=== PATIENT | female | born 1985 | race Caucasian/White ===

== ENCOUNTER 2016-11-18 10:50 | Outpatient (CLI) | payer OTHER ==
--- NOTE | 2016-11-18 12:10 | DIAGNOSTIC IMAGING REPORT ---
PROCEDURE: US OB 1ST TRIMESTER W/TRANSVAG INDICATION: NO HEART TONES TECHNIQUE: Hernandes scale, color, and spectral Doppler transabdominal and endovaginal sonographic images of the first trimester gravid uterus were obtained. COMPARISON: None. FINDINGS: TRANSABDOMINAL SCANS: The gravid uterus is anteverted in position and contains a fundal gestational sac with a minimal decidual response. No significant perigestational hemorrhage. The cervix is closed. parts are identified. No detectable blood flow within the fetus. TRANSVAGINAL SCANS: The cervix is closed. A pole is present with an average crown-rump length of 20.3 mm which corresponds to a 1-bgwi-2-day gestation, 3 weeks behind the expected gestational age of 11 weeks 4 days. There is no detectable blood flow or dopplerable heartbeat within the fetus despite observation for number of minutes. Left ovary was identified. No corpus luteum. Right ovary was not identified. No free pelvic fluid. IMPRESSION: 1. Intrauterine demise at 8 weeks 4 days. 2. Closed cervix and no significant perigestational hemorrhage. 3. Discussed with Dr. Valdez.
--- NOTE | 2016-11-18 12:10 | DIAGNOSTIC IMAGING REPORT ---
PROCEDURE: US OB 1ST TRIMESTER W/TRANSVAG INDICATION: NO HEART TONES TECHNIQUE: Hernandes scale, color, and spectral Doppler transabdominal and endovaginal sonographic images of the first trimester gravid uterus were obtained. COMPARISON: None. FINDINGS: TRANSABDOMINAL SCANS: The gravid uterus is anteverted in position and contains a fundal gestational sac with a minimal decidual response. No significant perigestational hemorrhage. The cervix is closed. parts are identified. No detectable blood flow within the fetus. TRANSVAGINAL SCANS: The cervix is closed. A pole is present with an average crown-rump length of 20.3 mm which corresponds to a 5-bxwr-9-day gestation, 3 weeks behind the expected gestational age of 11 weeks 4 days. There is no detectable blood flow or dopplerable heartbeat within the fetus despite observation for number of minutes. Left ovary was identified. No corpus luteum. Right ovary was not identified. No free pelvic fluid. IMPRESSION: 1. Intrauterine demise at 8 weeks 4 days. 2. Closed cervix and no significant perigestational hemorrhage. 3. Discussed with Dr. Valdez.
== END 2016-11-19 15:50 | disposition home or self-care (01) ==
LOC: US SRH 10:50
DX: O02.1 Missed abortion (principal)